=== PATIENT | female | born 2000 | race African-American/Black ===

== ENCOUNTER 2019-07-01 18:51 | Emergency (ER) | payer MEDICAID ==
[~2019-07-01] VITALS: Ht 167.6 cm; Wt 65.0 kg
[2019-07-01] MEDS ORDERED: METHYLPREDNISOLONE SOD SUCC 125 MG/2 ML VIAL IV STA (19:10)
[2019-07-01] MEDS ORDERED: SODIUM CHLORIDE 0.9% 1,000 ML IV ONE ×2 (19:10→21:20)
[2019-07-01] MEDS ORDERED: IPRATROPIUM/ALBUTEROL 0.5-3(2.5)MG/3ML NEB HHN ONE (19:15)
[2019-07-01] MEDS ORDERED: MAGNESIUM 2 G PREMIX 50 ML IV ONE (19:15)
[2019-07-01] MEDS ORDERED: AZITHROMYCIN 500 MG TABLET PO ONE (19:15)
[2019-07-01 20:22] LABS: BASOPHILS % 0.3 % (0.0-2.0); EOSINOPHILS % 5.5 % (0.0-5.0); HEMATOCRIT. 40.2 % (36.0-48.0); LYMPHOCYTES % 49.4 % (20.0-50.0); MEAN CORPUSCULAR HEMOGLOBIN 27.4 pg (28.0-32.0); MEAN CORPUSCULAR VOLUME 78.9 fL (81.0-99.0); MEAN PLATELET VOLUME 8.8 fl (7.4-10.4); MONOCYTES % 5.5 % (2.0-8.0); NEUTROPHILS % 39.3 % (40.0-76.0); PLATELET 186 x1000/uL (130-400); RED BLOOD CELL COUNT 5.09 mill/uL (4.2-5.4); RED CELL DISTRIBUTION WIDTH 15.7 % (11.6-14.6)
[2019-07-01 20:27] LABS: CHLORIDE 109 mEq/L (98-107); HCG SCREEN NEGATIVE
[2019-07-01 20:31] LABS: ETHANOL BLOOD < 10 mg/dL
[2019-07-01 21:02] LABS: *BARBITURATES SCREEN URINE NEGATIVE (NEGATIVE)
[2019-07-01 21:03] LABS: *AMPHETAMINES SCREEN URINE NEGATIVE (NEGATIVE); *BENZODIAZEPINES SCREEN URINE NEGATIVE (NEGATIVE); *COCAINE SCREEN URINE NEGATIVE (NEGATIVE); METHADONE URINE SCREEN NEGATIVE (NEGATIVE); OPIATES URINE SCREEN NEGATIVE (NEGATIVE); PHENCYCLIDINE URINE SCREEN NEGATIVE (NEGATIVE)
[2019-07-01 21:04] LABS: CANNABINOID URINE SCREEN NEGATIVE (NEGATIVE)
[2019-07-01] MEDS ORDERED: LORAZEPAM 2MG/ML CPJ IV ONE (21:15)
[2019-07-01] MEDS ORDERED: POTASSIUM CHLORIDE 20MEQ TABLET SR PO ONE (21:30)
[2019-07-01 21:49] LABS: BG BASE EXCESS -4.3 mmol/L (-2.0-2.0); BG CARBOXYHEMOGLOBIN 0.3 % (0.5-1.5); BG DEOXYHEMOGLOBIN 2.4 % (0.0-5.0); BG FRACTION INSPIRED OXYGEN 21; BG HCO3 ACT 20.1 mmol/L (22.0-26.0); BG METHEMOGLOBIN 0.1 % (0.0-1.5); BG OXYGEN SATURATION 97.6 % (92.0-98.5); BG OXYHEMOGLOBIN 97.2 % (94.0-97.0); BG PCO2 34.7 mmHg (35.0-45.0); BG PO2 105.9 mmHg (75.0-100.0); BG SAMPLE SITE RIGHT RADIAL; BG TOTAL HEMOGLOBIN 13.1 g/dL (12.0-18.0); BG VENT MODE ROOM AIR
[2019-07-01 23:15] VITALS: BP 125/55
[2019-07-02 15:48] LABS: CLARITY URINE CLOUDY (CLEAR); COLOR URINE YELLOW (YELLOW); KETONES URINE TRACE (NEGATIVE); LEUKOCYTE ESTERASE URINE 2+ (NEGATIVE); NITRITE URINE NEGATIVE (NEGATIVE); OCCULT BLOOD URINE NEGATIVE (NEGATIVE); PH URINE 7.5 (4.5-8.0); PROTEIN URINE NEGATIVE (NEGATIVE); SPECIFIC GRAVITY URINE 1.023 (1.005-1.030); UROBILINOGEN URINE 0.2 E.U./dL (0.2-1.0)
== END 2019-07-01 23:36 | disposition home or self-care (01) ==
LOC: ER 18:51
DX: J45.909 Unspecified asthma, uncomplicated (principal); E86.0 Dehydration
CPT/HCPCS: 36415; 36600; 71045; 80053; 80305; 80320; 81003; 82375; 82805; 83605; 83690; 83880; 84443; 84484; 84703; 85025; 87040; 87086; 93005; 94640; 96361; 96365; 96375; 99284; J2060; J2930; J3475; J7030; J7620; Z7610; G0480

== ENCOUNTER 2019-10-21 07:08 | Emergency (ER) | payer MEDICAID ==
[~2019-10-21] VITALS: Ht 170.2 cm; Wt 60.0 kg
[2019-10-21 09:05] LABS: CLARITY URINE CLOUDY (CLEAR); COLOR URINE YELLOW (YELLOW); KETONES URINE NEGATIVE (NEGATIVE); LEUKOCYTE ESTERASE URINE 1+ (NEGATIVE); NITRITE URINE NEGATIVE (NEGATIVE); OCCULT BLOOD URINE 3+ (NEGATIVE); PROTEIN URINE TRACE (NEGATIVE); SPECIFIC GRAVITY URINE 1.028 (1.005-1.030)
[2019-10-21] MEDS ORDERED: CEFTRIAXONE SODIUM 1 G/VIAL IM ONE (10:45)
[2019-10-21] MEDS ORDERED: LIDOCAINE HCL 1% 20ML VIAL (Pyxis) INJ INFIL ONE (10:45)
[2019-10-21 12:26] VITALS: BP 118/69
== END 2019-10-21 12:31 | disposition home or self-care (01) ==
LOC: ER 07:22
DX: N10 Acute pyelonephritis (principal); J45.909 Unspecified asthma, uncomplicated
CPT/HCPCS: 76770; 81003; 81025; 87086; 96372; 99284; J0696; J3490; Z7610

== ENCOUNTER 2020-07-06 11:29 | Observation (INO) | payer MEDICAID ==
[2020-07-06 13:37] VITALS: BP 112/58
== END 2020-07-06 13:45 | disposition home or self-care (01) ==
LOC: 8 EST LDRP 11:29
PROVIDERS: ADMIT Specialist; ATTEND Specialist
DX: Z34.93 Encounter for supervision of normal pregnancy, unspecified, third trimester (principal); Z3A.29 29 weeks gestation of pregnancy
CPT/HCPCS: 36415; 86886; 90384; 96372; G0378

== ENCOUNTER 2021-09-30 09:50 | Emergency (ER) | payer MEDICAID ==
[~2021-09-30] VITALS: Ht 160 cm; Wt 52.0 kg
[2021-09-30 09:51] VITALS: BP 117/78
[2021-09-30] MEDS ORDERED: IBUP-2028 MT (10:06)
[2021-09-30] MEDS ORDERED: TOPUD PO (10:06)
== END 2021-09-30 11:19 | disposition home or self-care (01) ==
LOC: ER 09:50
DX: U07.1 COVID-19 (principal)
CPT/HCPCS: 99283; C9803; U0003; U0005

== ENCOUNTER 2022-04-29 11:36 | Emergency (ER) | payer MEDICAID ==
[~2022-04-29] VITALS: Ht 162.6 cm; Wt 53.0 kg
[~2022-04-29 11:36] MED LIST: ALBU6.7H9 INH; IBUP-2028 MT; P20 MT; TOPUD PO
[2022-04-29] MEDS ORDERED: MORPHINE SULFATE 10 MG/ML CPJ IM STA (12:22)
[2022-04-29] MEDS ORDERED: MORPHINE SULFATE 10 MG/ML CPJ IM NR (14:06)
[2022-04-29 14:17] VITALS: BP 123/71
== END 2022-04-29 14:17 | disposition home or self-care (01) ==
LOC: ER 11:45
DX: O26.891 Other specified pregnancy related conditions, first trimester (principal); M79.672 Pain in left foot; J45.909 Unspecified asthma, uncomplicated; Z87.828 Personal history of other (healed) physical injury and trauma; Z98.890 Other specified postprocedural states; Z3A.01 Less than 8 weeks gestation of pregnancy; Z88.6 Allergy status to analgesic agent
CPT/HCPCS: 73630; 81025; 99283